=== PATIENT | male | born 1955 | race American Indian/Alaskan Native ===

== ENCOUNTER 2017-09-19 09:48 | Outpatient (CLI) | payer MEDICARE, OTHER ==
--- NOTE | 2017-09-19 14:02 | XRay Report ---
Cervical spine series: Right shoulder pain. There is bridging anterior spondylosis from C2-C7. The vertebral height, alignment, and the interspaces are preserved. The foramina appear to be adequately patent bilaterally. The apophyseal joints are aligned. No prevertebral swelling identified however there is a slight anterior bulge of the soft tissues at C3-4 secondary to the anterior spondylosis. The bones are well-mineralized. Impression: Diffuse bridging spondylosis. No acute findings.
== END 2017-09-19 09:49 | disposition home or self-care (01) ==
LOC: XRAY 09:48
PROVIDERS: ATTEND Internal Medicine
DX: M47.892 Other spondylosis, cervical region (principal); M25.511 Pain in right shoulder
CPT/HCPCS: 72052